=== PATIENT | female | born 1930 | race Caucasian/White ===

== ENCOUNTER 2017-11-30 18:04 | Inpatient (IN) ==
[2017-11-30] MEDS ORDERED: SODIUM CHLORIDE 0.9% 500 ML IV STA (19:29)
[2017-11-30] MEDS ORDERED: ONDANSETRON 4 MG/2 ML VIAL IV STA (19:29)
[2017-11-30 20:18] LABS: Basophils % 0.6 % (0.0-0.8); Eosinophils % 0.3 % (0.00-10.9); Hemoglobin 13.6 GM/DL (12.0-16.0); Immature Granulocytes % 0.3 %; Immature Granulocytes Absolute 0.02 #; Lymphocytes # 0.9 10*3/uL (1.4-4.0); Lymphocytes % 11.9 % (21.3-54.2); Mean Corpuscular HGB Conc 32.4 GM/DL (32-36); Mean Corpuscular Hemoglobin 30 PG (27-34); Mean Corpuscular Volume 93.3 FL (87-102); Mean Platelet Volume 13.8 FL (9.6-12.0); Monocytes # 0.2 10*3/uL (0.11-0.8); Monocytes % 2.6 % (1.7-12.7); Neutrophils # 6.1 10*3/uL (1.4-7.4); Neutrophils % 84.3 % (38.7-73.9); Platelet Count 81 T/CUMM (130-400); Red Cell Distribution Width 13.4 % (9.3-17.3); White Blood Count 7.3 T/CUMM (4-12)
[2017-11-30 20:34] LABS: Albumin 4.2 G/DL (3.4-5.0); Bilirubin,Total 0.4 MG/DL (0.2-1.0); Calcium 8.7 MG/DL (8.5-10.1); Osmolality,Calculated 282.8 MOS/KG (273-304); Total Protein 7.5 G/DL (6.4-8.3)
[2017-11-30 20:52] LABS: INR 0.9; Partial Thromboplastin Time 24.1 SECS (0-40)
[2017-11-30 21:29] LABS: Macrocytosis 1+
[2017-11-30 21:30] LABS: Platelet Estimate Decreased
[2017-12-01] MEDS ORDERED: ACETAMINOPHEN 325 MG TABLET PO PRN (00:50)
[2017-12-01] MEDS ORDERED: DEXTROSE 50% 25 GM/50 ML VIAL IV PRN (00:50)
[2017-12-01] MEDS ORDERED: MECLIZINE 25 MG TABLET PO PRN (00:50)
[2017-12-01] MEDS ORDERED: ONDANSETRON 4 MG/2 ML VIAL IV PRN (00:50)
[2017-12-01] MEDS ORDERED: GLUCAGON 1 MG VIAL IM PRN (00:50)
[2017-12-01 01:05] LABS: Apearance,Urine CLEAR (Clear); Bilirubin,Urine Negative (Negative); Blood, Urine Small mg/dL (Negative); Glucose,Urine (UA) >=500 mg/dL (Negative); Ketones,Urine 20 mg/dL (Negative); Nitrite,Urine Negative (Negative); Protein,Urine Negative; RBC,Urine 1 /HPF (0-4); Squamous Epithelial Cell,Urine Occasional /HPF (0-10); Urine Color Yellow (Yellow); Urine Specific Gravity 1.008 (1.001-1.035); Urine Urobilinogen < 2.0 EU/DL (0.2-1.0)
[2017-12-01] MEDS: INSULIN REGULAR 100 UNIT/ML SUBCUT SCH ×5 (03:27→20:41)
[2017-12-01] MEDS ORDERED: INSULIN REGULAR 100 UNIT/ML SUBCUT SCH (07:30)
[2017-12-01] MEDS ORDERED: GLIMEPIRIDE 2 MG TABLET PO SCH (08:00)
[2017-12-01] MEDS: ISOSORBIDE MONONITRATE 30 MG TABLET PO SCH (09:12)
[2017-12-01] MEDS: DOCUSATE SODIUM 100 MG CAPSULE PO SCH ×2 (09:12→20:40)
[2017-12-01] MEDS: LISINOPRIL 20 MG TABLET PO SCH (09:12)
[2017-12-01] MEDS: amLODIPine 10 MG TABLET PO SCH (09:12)
[2017-12-01] MEDS: PANTOPRAZOLE 40 MG TABLET PO SCH (09:13)
[2017-12-01] MEDS: ASPIRIN EC 81 MG TABLET PO SCH (16:56)
[2017-12-01] MEDS ORDERED: NIACIN 500 MG TABLET PO SCH (21:00)
[2017-12-01] MEDS ORDERED: PRAVASTATIN 40 MG TABLET PO SCH (21:00)
[2017-12-02 05:32] LABS: Basophils % 0.5 % (0.0-0.8); Eosinophils # 0.1 10*3/uL (0.0-0.87); Eosinophils % 1.8 % (0.00-10.9); Hematocrit 40.5 VOL% (35.7-47.0); Hemoglobin 12.8 GM/DL (12.0-16.0); Immature Granulocytes % 0.2 %; Immature Granulocytes Absolute 0.01 #; Lymphocytes # 1.2 10*3/uL (1.4-4.0); Lymphocytes % 21.2 % (21.3-54.2); Mean Corpuscular HGB Conc 31.6 GM/DL (32-36); Mean Corpuscular Hemoglobin 30 PG (27-34); Mean Corpuscular Volume 95.7 FL (87-102); Mean Platelet Volume 13.7 FL (9.6-12.0); Monocytes # 0.3 10*3/uL (0.11-0.8); Monocytes % 5.3 % (1.7-12.7); Platelet Count 70 T/CUMM (130-400); Red Blood Count 4.23 MC/CUMM (3.8-5.5); Red Cell Distribution Width 13.7 % (9.3-17.3); White Blood Count 5.7 T/CUMM (4-12)
[2017-12-02 05:56] LABS: Hypochromasia 1+
[2017-12-02 05:57] LABS: Macrocytosis Slight; Platelet Estimate Decreased
[2017-12-02 06:04] LABS: Risk Ratio 2.93
[2017-12-02 06:06] LABS: Bilirubin,Total 0.4 MG/DL (0.2-1.0); Osmolality,Calculated 293.7 MOS/KG (273-304); Potassium 4.1 MMOL/L (3.5-5.1); Total Protein 5.8 G/DL (6.4-8.3)
[2017-12-02] MEDS: INSULIN REGULAR 100 UNIT/ML SUBCUT SCH ×3 (07:39→18:31)
[2017-12-02] MEDS: DOCUSATE SODIUM 100 MG CAPSULE PO SCH (10:12)
[2017-12-02] MEDS: ISOSORBIDE MONONITRATE 30 MG TABLET PO SCH (10:12)
[2017-12-02] MEDS: amLODIPine 10 MG TABLET PO SCH (10:12)
[2017-12-02] MEDS: PANTOPRAZOLE 40 MG TABLET PO SCH (10:13)
[2017-12-02] MEDS: ASPIRIN EC 81 MG TABLET PO SCH (10:13)
[2017-12-02] MEDS: GLIMEPIRIDE 4 MG TABLET PO SCH ×2 (10:13→18:32)
[2017-12-02] MEDS: LISINOPRIL 20 MG TABLET PO SCH (10:13)
[2017-12-02 17:17] VITALS: BP 137/66
== END 2017-12-02 18:45 | disposition home health service (06) | DRG 66 ==
LOC: N.ED 18:04 → MERGE 22:56 → N.EDINP 22:56 → N.3E 12-01 00:36
PROVIDERS: ADMIT Internal Medicine; ATTEND Internal Medicine